=== PATIENT | male | born 1990 | race Caucasian/White ===

== ENCOUNTER 2020-10-14 13:01 | Emergency (ER) | payer OTHER ==
[2020-10-14] MEDS ORDERED: Ketorolac Tromethamine 30 MG/ML VIAL ONE ×2 (15:26→15:29)
--- NOTE | 2020-10-14 16:09 | CT ---
CT LUMBAR SPINE WITHOUT CONTRAST: INDICATIONS: 30-year-old male with history of back injury yesterday while lifting a of the umbrella over a fence. COMPARISON: None. TECHNIQUE: Multiple CT images were obtained of the lumbar spine without contrast. Axial, coronal, and sagittal r eformatted images were constructed from the raw data. FINDINGS: Visualized retroperitoneal and paravertebral soft tissues: There is numerous appearing shotty lymph n odes that are nonpathologically enlarged within the retroperitoneum, adjacent to the aorta and IVC. There is also slight hanane mesentery seen within the mesenteric root with shotty appearing lymph node s. The largest lymph node is seen adjacent to the left common iliac vasculature measuring 8 mm. The remainder of the visualized retroperitoneum appears within normal limits. Spinal alignment: Within normal limits. Spinal instrumentation or postsurgical change: None At L5-S1, there is a broad-based disc bulge with a superimposed partially calcified central protrusio n. The broad-based bulge and protrusion induces mild to moderate narrowing of the lateral recess bilaterally with potential for impingement of the traversing S1 nerve roots. There is mild facet join t degenerative change and hypertrophy at this level. There is no appreciable neural foraminal narrowing is evident.. At L4-5, there is a broad-based disc bulge with a superimposed central protrusion inducing moderate r ight lateral recess narrowing, best seen on image 77 of series 2 with potential for impingement of the traversing right L5 nerve root. No appreciable neural foraminal narrowing is evident. There is mi ld ventral effacement of the subarachnoid space by the central protrusion. At L3-4, there is a mild broad-based bulge but no appreciable central canal or neural foraminal narro wing. At L2-3, there is a mild broad-based bulge but no appreciable central canal or neural foraminal narro wing. At L1-L2, there is no appreciable central canal or neuroforaminal narrowing. At T12-L1, there is no appreciable central canal or neuroforaminal narrowing. IMPRESSION: 1. Mild lumbar spondylosis, most prominent at L5-S1 and L4-5. If the patient is having radicular sym ptoms, a follow-up nonemergent MRI of the lumbar spine may be helpful for improved characterization of the degree of lateral recess narrowing described above. 2. Nonspecific stranding of the central mesenteric root with shotty appearing lymph nodes of the mese ntery and retroperitoneum. Findings are nonspecific and can be seen with any pathologic entities such as sclerosing mesenteritis. However, lymphoma can have a presentation similar to this. Metastati c disease is not entirely excluded. Follow-up nonemergent CT of the abdomen and pelvis with IV contrast is recommended for further evaluation.
[2020-10-14] MEDS ORDERED: Diazepam 5 MG TAB ONE (16:34)
== END 2020-10-14 17:13 | disposition home or self-care (01) ==
LOC: ERS 13:01
DX: S39.012A Strain of muscle, fascia and tendon of lower back, initial encounter (principal); F17.290 Nicotine dependence, other tobacco product, uncomplicated; Z79.899 Other long term (current) drug therapy; X50.1XXA Overexertion from prolonged static or awkward postures, initial encounter
CPT/HCPCS: 72131; 96372; J1885